=== PATIENT | female | born 1990 | race Caucasian/White ===

== ENCOUNTER 2021-04-12 23:27 | Emergency (ER) | payer SELFPAY ==
[~2021-04-12] VITALS: Ht 165.1 cm; Wt 115.7 kg
[2021-04-12] MEDS ORDERED: IRON18 MG PO (23:49)
[2021-04-12] MEDS ORDERED: ALBU90OI INH (23:52)
[2021-04-13 00:12] LABS: BASOPHILS ABSOLUTE AUTO 0.09 K/mm3 (0.00-0.23); BASOPHILS PERCENT AUTO 1 % (0-2); EOSINOPHILS ABSOLUTE AUTO 0.38 K/mm3 (0.00-0.68); EOSINOPHILS PERCENT AUTO 4 % (0-6); Hematocrit 33.8 % (33.0-51.0); Hemoglobin 10.8 g/dL (11.5-16.0); IMMATURE GRAN ABSOLUTE AUTO 0.05 K/mm3 (0.00-0.10); IMMATURE GRAN PERCENT AUTO 1 % (0-1); LYMPHOCYTES ABSOLUTE AUTO 2.95 K/mm3 (0.84-5.20); LYMPHOCYTES PERCENT AUTO 31 % (21-46); MONOCYTES ABSOLUTE AUTO 0.78 K/mm3 (0.16-1.47); MONOCYTES PERCENT AUTO 8 % (4-13); Mean Corpuscular HGB 24.8 pg (26.0-34.0); Mean Corpuscular Volume 78 fL (80-100); Mean Platelet Volume 9.7 fL (9.1-12.4); NEUTROPHILS ABSOLUTE AUTO 5.41 K/mm3 (1.96-9.15); NEUTROPHILS PERCENT AUTO 56 % (41-73); Platelet Count 311 K/mm3 (150-400); RDW Coefficient Variation 14.6 % (11.7-14.2); RDW Standard Deviation 40.4 fL (35.1-46.3); Red Blood Cell Count 4.36 M/mm3 (3.80-5.20); White Blood Cell Count 9.66 K/mm3 (4.00-11.30)
[2021-04-13 00:38] LABS: Anion Gap 5 mmol/L (6-16); Blood Urea Nitrogen 13 mg/dL (8-24); Bun/Creatinine Ratio 16.4 (12.0-20.0); CO2, Blood 25 mmol/L (21-32); Chloride, Blood 110 mmol/L (98-108); Creatinine, Blood 0.79 mg/dL (0.40-1.00); Glomerular Filtration Rate >60 (60-); Glucose, Blood 100 mg/dL (70-99); Magnesium, Blood 2.1 mg/dL (1.6-2.4); Potassium, Blood 3.6 mmol/L (3.5-5.5); Sodium, Blood 140 mmol/L (136-145)
== END 2021-04-13 01:07 | disposition home or self-care (01) ==
LOC: ER 23:27
PROVIDERS: Emergency Medicine
DX: R00.2 Palpitations (principal)
CPT/HCPCS: 36415; 80048; 83735; 84443; 84703; 85025; 85379; 93005; 93010; 99284-25

== ENCOUNTER → 2021-05-23 | Outpatient (CLI) | payer SELFPAY ==
[~2021-05-23] MED LIST: ALBU90OI INH; IRON18 MG PO
== END | disposition home or self-care (01) ==
LOC: LAB SHORT 08:34 → LAB 08:34
DX: R07.81 Pleurodynia (principal)
CPT/HCPCS: 85379

== ENCOUNTER 2024-09-05 05:42 | Emergency (ER) | payer SELFPAY ==
[~2024-09-05] VITALS: Ht 162.6 cm; Wt 113.4 kg
[2024-09-05 05:55] VITALS: BP 146/108
== END 2024-09-05 09:04 | disposition home or self-care (01) ==
LOC: ER 05:42
DX: B34.9 Viral infection, unspecified (principal)
CPT/HCPCS: 99283